=== PATIENT | female | born 2000 | race Caucasian/White ===

== ENCOUNTER 2022-09-19 15:14 | Emergency (ER) | payer OTHER ==
[2022-09-19] MEDS ORDERED: Lorazepam 1 MG TAB ONE (16:15)
[2022-09-19] MEDS ORDERED: Acetaminophen 500 MG TAB ONE (16:15)
[2022-09-19] MEDS ORDERED: Lidocaine 1% PF 5 ML VIAL ONE (17:25)
== END 2022-09-19 18:20 | disposition home or self-care (01) ==
LOC: CSHERS 15:14
DX: S91.012A Laceration without foreign body, left ankle, initial encounter (principal); V03.10XA Pedestrian on foot injured in collision with car, pick-up truck or van in traffic accident, initial encounter
CPT/HCPCS: 12001